=== PATIENT | female | born 1945 | race Hispanic/Latino ===

== ENCOUNTER 2020-03-03 08:54 | Emergency (ER) | payer OTHER ==
[2020-03-03] MEDS ORDERED: MORPHINE SULFATE 2 MG/ML 1ML SYG ONE (09:39)
[2020-03-03] MEDS ORDERED: ONDANSETRON HCL 4 MG/2 ML VIAL ONE (11:20)
[2020-03-03] MEDS ORDERED: ETOMIDATE 2 MG/ML 10 ML VIAL ONE (11:37)
[2020-03-03] MEDS ORDERED: MIDAZOLAM HCL 1 MG/ML 2ML VIAL ONE (11:37)
== END 2020-03-03 14:53 | disposition home or self-care (01) ==
LOC: EDH 08:54
DX: S42.141A Displaced fracture of glenoid cavity of scapula, right shoulder, initial encounter for closed fracture (principal); S43.084A Other dislocation of right shoulder joint, initial encounter; S50.01XA Contusion of right elbow, initial encounter; S00.83XA Contusion of other part of head, initial encounter; E78.00 Pure hypercholesterolemia, unspecified; I10 Essential (primary) hypertension; Z98.890 Other specified postprocedural states; Z79.899 Other long term (current) drug therapy; Z91.041 Radiographic dye allergy status; W01.0XXA Fall on same level from slipping, tripping and stumbling without subsequent striking against object, initial encounter; Y93.89 Activity, other specified; Y92.89 Other specified places as the place of occurrence of the external cause; Y99.8 Other external cause status
CPT/HCPCS: 23665; 73030 ×3; 73060; 73080; 73090; 96372; 96374; 99285; J2250; J2405; J3490; 96375